=== PATIENT | female | born 1975 | race Caucasian/White ===

== ENCOUNTER 2023-12-30 00:14 | Emergency (ER) | payer SELFPAY ==
[~2023-12-30] VITALS: Ht 160 cm; Wt 86.2 kg
[2023-12-30 00:38] VITALS: BP 155/97; PULSE 72; RESP 16; TEMP 96.9; O2SAT 98
[2023-12-30 00:46] VITALS: BP 155/97; PULSE 72; RESP 16
[2023-12-30 00:56] VITALS: O2SAT 98
[2023-12-30 01:06] LABS: APPEARANCE,URINE CLEAR (CLEAR); BILIRUBIN,URINE NEGATIVE (NEGATIVE); BLOOD, URINE TRACE-I (NEGATIVE); COLOR,URINE YELLOW (YELLOW); LEUKOCYTE ESTERASE ,URINE 2+ (NEGATIVE); NITRITE, URINE NEGATIVE (NEGATIVE); PH,URINE 6.5 (5.0-9.0); PROTEIN,URINE NEGATIVE (NEGATIVE); UGLUCOSE NEGATIVE (NEGATIVE); UROBILINOGEN,URINE 0.2 EU/dL (0.2 - 1)
[2023-12-30 01:09] LABS: BACTERIA,URINE >30 (MANY) /HPF (None Seen); MUCUS,URINE 1+ /LPF (None Seen); SQUAMOUS EPITHELIAL CELL,UR 4-10 (MOD) /LPF (0-3 (FEW)); WBC,URINE >25 (MANY) /HPF (0-5)
[2023-12-30] MEDS ORDERED: KETOROLAC 30 MG/ML VIAL ONE (01:15)
[2023-12-30] MEDS: KETOROLAC 30 MG/ML VIAL IM ONE (01:20)
[2023-12-30] MEDS ORDERED: IBUP-2213 PO (01:54)
[2023-12-30] MEDS ORDERED: CIPR500T4 PO (01:54)
== END 2023-12-30 02:06 | disposition home or self-care (01) ==
LOC: MED 00:14
DX: J06.9 Acute upper respiratory infection, unspecified (principal); N39.0 Urinary tract infection, site not specified; M25.562 Pain in left knee; Z20.822 Contact with and (suspected) exposure to COVID-19; Z79.1 Long term (current) use of non-steroidal anti-inflammatories (NSAID); Z79.2 Long term (current) use of antibiotics
CPT/HCPCS: 81001; 81025; 87086; 87426; 96372; 99283; J1885